=== PATIENT | female | born 1980 | race Caucasian/White ===

== ENCOUNTER 2017-03-03 23:51 | Emergency (ER) | payer BC, OTHER ==
[~2017-03-03] VITALS: Ht 157.5 cm; Wt 79.4 kg
[2017-03-03 23:55] VITALS: BP 126/86
--- NOTE | 2017-03-04 00:20 | PHYS DOC ---
General Chief Complaint: CHEST PAIN Stated Complaint: CHEST PAIN,DIZZINESS,SOB,NAUSEA Time Seen by MD: 00:17 Source: patient, family Problems: History of Present Illness Initial Comments Patient with for chest pain. Patient says her pain started about 3:00 in the morning. It woke her up from sleep. Sharp. It's located in the central left chest and under the left breast. She says she's never had pain like this before. Is no recent history of injury or trauma to the chest that she has been doing some moving between houses lifting boxes painting. She's had no fever or chills with this. There is no runny nose or sore throat. She says the discomfort has made her feel short of breath. Also made her break out into a sweat last night and she's felt nauseated from time to time with the pain. She has no other chest discomfort except as described. She says she has some upper abdominal discomfort which, on questioning, seems to be less in the abdominal area more over the inferior edge of the left anterior ribs. She has no distinct change in bowel or bladder habits. There is no vaginal bleeding or discharge. Her last period was the first part of this month. She is on control pills patient doesn't think she can be . Her is "fixed" also. She denies any focal extremity or neurologic complaints. Patient's taken nothing for this home and really notes no other increasing or decreasing factors. Patient's past medical history is otherwise unremarkable. She is a nonsmoker and nonuser of ethanol. There is no family history of heart disease. Allergies: Coded Allergies: ibuprofen (Verified Allergy, Severe, Swelling, 03/04/17) naproxen (Verified Allergy, Severe, Swelling, 03/04/17) Past Medical History Medical History: no pertinent history Social History Smoker: non-smoker Alcohol: none Review of Systems All Other Systems: Reviewed and Negative Physical Exam General Appearance: WD/WN, no apparent distress Neck: full range of motion, supple, normal inspection Respiratory: lungs clear, normal breath sounds, no respiratory distress, other Cardiovascular: regular rate, rhythm, no edema Gastrointestinal: non tender, soft, no organomegaly Back: no CVA tenderness, no vertebral tenderness Extremities: non-tender, normal inspection, no pedal edema Neurologic/Psychiatric: alert, normal mood/affect, oriented x 3 Skin: normal color Lymphatic: no adenopathy Comments Generally this a well-developed well-nourished white female in no acute distress. She appears mildly anxious. Vitals are as noted. Pertinent findings on physical exam shows the neck to be supple without adenopathy or JVD. There's no meningeal signs. Chest is clear. She is tender to palpation over the low left costal sternal junction as well as over the left inframammary area and the anterior wall the left chest. There is no signs of injury or trauma noted. Palpation does exactly increasing reproduce her pain, as this most of the left upper extremity versus resistance, especially with adduction. Cardiac vascular exam shows regular rate and rhythm without murmur. The abdomen is soft and nontender without masses or megaly. There is no perineal findings. Back shows no CVA tenderness. Extremity show no rashes cyanosis or edema. There is no signs of DVT. Neurologic exam finds her to be awake alert oriented and cooperative. Remainder of physical exam is clinically unremarkable. Orders, Labs, Meds Old charts note no prior ER visits within the current system. EKG shows sinus 60. Normal axis. No acute ST or T-wave changes. D-dimer is minimally elevated at 0.79. Chest x-ray shows no acute changes per the emergency physician. 0130 Patient resting comfortable in the ER. She's had some pain relief with Lortab. She continues to complain of chest discomfort. She remains tender to palpation along the lower costal sternal junction left in the left inframammary area. This continues to increased reproduce her pain. She's also relates some burning in her stomach for stomach itself is fully nontender. I discussed with the patient and her the uncertain cause for chest discomfort. I really do think this probably muscular skeletal chest wall pain. She may have done some lifting or straining while she was moving, and didn't realize it until it stiffened up and began to hurt. There is certainly no evidence of acute cardiopulmonary compromise. Her d-dimer is mildly elevated, but I suspect this is because of control pills. She has no tachycardic, no EKG changes, no shortness of breath, and no signs of the redness swelling or cords or other signs of DVT within the lower extremities. We discussed home care including rest, ice for the first 48 hours followed by heat, and I'll write a prescription for Ultram and Norflex for pain. She has no seizure history. She voices understanding need to follow up with primary care or return to the ER sooner as needed if worsening anyway. She looks well, in no acute discomfort distress, okay for discharge home at this time. LEILA TY MD Mar 04, 2017 00:20
[2017-03-04] MEDS ORDERED: HYDROCODONE/APAP 5/325MG TABLET. PO ONE (01:30)
[2017-03-04] MEDS ORDERED: TRAMADOL 50 MG TABLET. PO ONE (02:00)
--- NOTE | 2017-03-04 06:04 | EKG ---
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
--- NOTE | 2017-03-04 08:13 | RAD ---
CHEST PA LATERAL Clinical Indication: Chest pain and dizziness tonight Comparison: None. Technique: Frontal and lateral views of the chest are obtained. Findings: No focal consolidation, pleural effusion or pneumothorax is present. Cardiomediastinal silhouette is within normal limits of size. Visualized osseous structures and overlying soft tissues demonstrate no acute finding. IMPRESSION: No radiographic evidence of an acute cardiopulmonary process.
== END 2017-03-04 01:55 | disposition home or self-care (01) ==
LOC: ER 23:51
DX: R07.89 Other chest pain (principal); R11.0 Nausea; R10.10 Upper abdominal pain, unspecified; Z88.6 Allergy status to analgesic agent
CPT/HCPCS: 36415; 71020; 85379; 93005; 99285-25